=== PATIENT | male | born 2000 | race Caucasian/White ===

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

== ENCOUNTER 2023-01-01 22:19 | Emergency (ER) | payer MEDICAID ==
[~2023-01-01] VITALS: Ht 157.5 cm; Wt 47.2 kg
[~2023-01-01 22:19] MED LIST changes: +ACET-9527 PO; -ALBU-118 INH; -ALBU0.0912 IH; -ATA10 PO; -BUDE180P IH; -HYDR25CA1 PO; -IBUP-2213 PO; -MECL-370 PO; -METR500T1 PO; -ONDA4TAB PO; -PRED20TA5 PO; -PRED5TAB7 PO; -TURM538C PO
[2023-01-01 22:27] VITALS: BP 121/81
--- NOTE | 2023-01-01 22:27 | NUR ---
Dr. Chapman examining patient in triage room.
[2023-01-01] MEDS ORDERED: ACETAMINOPHEN EXTRA STRENGTH 500 MG TAB PO ONE (22:40)
[2023-01-01 22:44] VITALS: BP 121/81
--- NOTE | 2023-01-01 22:50 | NUR ---
PT TAKEN TO BED 8
--- NOTE | 2023-01-01 22:55 | NUR ---
22 Y/O M presents with abdominal pressure pain 4/10 and rectal bleeding x1 week. pt states he has been nauseated but denies. pt states he has a headache 2/10. pt is A&Ox4, skin intact, respirations even and unlabored. PMH- vertigo, asthma, appendectomy x2yrs NKA
[2023-01-01 23:00] LABS: BASOPHILS # (AUTO) 0.1 K/uL (0.00-0.22); BASOPHILS % (AUTO) 0.8 % (0.0-2.0); EOSINOPHILS # (AUTO) 0.1 K/uL (0-0.4); EOSINOPHILS % (AUTO) 1.7 % (0.0-4.0); HEMATOCRIT 42.4 % (36-52); HEMOGLOBIN 14.1 g/dL (12.0-18.0); LYMPHOCYTES # (AUTO) 2.4 K/uL (2.0-11.5); LYMPHOCYTES % (AUTO) 32.5 % (20.5-51.1); MEAN CORPUSCULAR HEMOGLOBIN 28 pg (27-31); MEAN CORPUSCULAR HGB CONC 33 g/dL (33-37); MEAN CORPUSCULAR VOLUME 85.6 fL (80-94); MONOCYTES # (AUTO) 0.6 K/uL (0.8-1.0); MONOCYTES % (AUTO) 8.8 % (1.7-9.3); NEUTROPHILS # (AUTO) 4.1 K/uL (1.8-7.7); NEUTROPHILS % (AUTO) 56.2 % (42.2-75.2); PLATELET COUNT (AUTO) 268 K/uL (140-450); RED BLOOD CELL COUNT(AUTO) 4.96 MIL/uL (4.20-6.10); RED CELL DISTRIBUTION WIDTH 13.7 % (11.6-13.7); WHITE BLOOD COUNT (AUTO) 7.2 K/uL (4.5-11.0)
--- NOTE | 2023-01-01 23:01 | NUR ---
Dr. Chapman examining patient.
[2023-01-01 23:32] LABS: CARBON DIOXIDE 31.6 mmol/L (21-32); CREATININE 1.1 mg/dL (0.6-1.3); POTASSIUM 3.6 mmol/L (3.5-5.1); TOTAL BILIRUBIN 0.9 mg/dL (0.0-1.0)
== END 2023-01-02 | disposition home or self-care (01) ==
LOC: MED 22:19
DX: R10.30 Lower abdominal pain, unspecified (principal); K92.1 Melena; J45.909 Unspecified asthma, uncomplicated; K21.9 Gastro-esophageal reflux disease without esophagitis; Z79.899 Other long term (current) drug therapy
CPT/HCPCS: 36415; 80053; 83690; 85025; 99283